=== PATIENT | female | born 1995 | race Two or more races ===

== ENCOUNTER 2018-04-02 10:31 | Day surgery (SDC) | payer OTHER ==
[2018-04-01 14:48] VITALS: BMI 27.1
[~2018-04-02 10:31] MED LIST: Cyclopentolate 1% Opth Drop 2 ML BOT FS SCH; Phenylephrine 2.5% Ophth Soln 5 ML BOT FS SCH
[2018-04-02] MEDS ORDERED: Cyclopentolate 1% Opth Drop 2 ML BOT ONE (10:55)
[2018-04-02] MEDS ORDERED: Phenylephrine 2.5% Ophth Soln 5 ML BOT ONE (10:55)
[2018-04-02] MEDS ORDERED: Lidocaine 2% 10 ML INJ ONE (11:30)
[2018-04-02] MEDS ORDERED: PROPOFOL 20 ML ONE (11:30)
[2018-04-02] MEDS ORDERED: Ondansetron HCl/PF 4 MG/2 ML Vial ONE ×2 (11:30→15:01)
[2018-04-02] MEDS ORDERED: Fentanyl 100 MCG/2 ML VIAL ONE (11:30)
[2018-04-02] MEDS ORDERED: Midazolam HCl 2 mg/2 ml Vial ONE (11:33)
[2018-04-02] MEDS ORDERED: ePHEDrine/0.9% NaCl/PF SYRINGE 50 mg/10 ml ONE (15:01)
[2018-04-02] MEDS ORDERED: Dexamethasone 20 MG/5 ML VIAL ONE (15:01)
[2018-04-02] MEDS ORDERED: Lidocaine 1% PF 5 ML VIAL ONE (15:01)
[2018-04-02] MEDS ORDERED: PROPOFOL 200 MG/20 ML VIAL ONE (15:01)
[2018-04-02] MEDS ORDERED: PHENYLEPHRINE-NS 100 MCG/ML 10 ML SYRINGE ONE (15:01)
--- NOTE | 2018-04-02 18:35 | OP ---
DATE OF PROCEDURE: 04/02/2018 PREOPERATIVE DIAGNOSES: Lattice degeneration, right eye; retinal detachment, left eye. PROCEDURE: Laser barricade right eye, scleral buckle, left eye. SURGEON: Miquel Combs M.D. ANESTHESIA: General endotracheal anesthesia. PROCEDURE IN DETAIL: The patient was identified in the preoperative holding area. [facility] consent for the planned surgical procedure on both eyes was obtained. The patient was transporte d to the operative suite where general endotracheal anesthesia was initiated. The right eye was ml oscar with 360 indirect laser barricade for a total of 563 spots. Left eye was prepped and draped in t he usual sterile manner for ophthalmic surgery on the left eye. Lid speculum was placed in the left eye. A 360 conjunctival peritomy was created by sharp dissection. Rectus muscles were looped on 2-0 silk ties, #41 band was encircled around the eye and ligated supranasally and [id number] element was plac ed on the temporal 180. This was fixated in place with 5-0 mersilene sutures. Posterior drain was c reated inferiorly and temporally with successful drain of subretinal fluid. Three spots of cryo were placed directly temporally over the retinal holes. Retrobulbar Kenalog and subconjunctival Ancef we re placed. Conjunctiva was closed with 6-0 plain gut suture. Antibiotic ointment placed and eye was patched and shielded. The patient was awakened and taken to recovery room in good condition and suf fered no immediate perioperative period. DISCHARGE INSTRUCTIONS: Patient was instructed to keep patch and shield on, avoid lifting or bending , and follow up in the morning with Dr. Combs.
== END 2018-04-02 15:10 | disposition home or self-care (01) ==
LOC: CANPRESDC → SDC 10:31
PROVIDERS: ATTEND Ophthalmology Retina Specialist
PROC: 08QE3ZZ Repair Right Retina, Percutaneous Approach (ICD-10-PCS; principal; 2018-04-02)
PROC: 08U10JZ Supplement of Left Eye with Synthetic Substitute, Open Approach (ICD-10-PCS; principal; 2018-04-02)
DX: H35.413 Lattice degeneration of retina, bilateral (principal); H33.22 Serous retinal detachment, left eye
CPT/HCPCS: J1100; J2001; J2250; J2405; J2704; J3010

== ENCOUNTER 2019-03-05 11:44 | Emergency (ER) | payer OTHER ==
[2019-03-05 12:23] LABS: Bilirubin Negative (Negative); Blood, Urine Small (Negative); Glucose, Urine (Dipstick) Negative (Negative); Leukocyte Moderate (Negative); Nitrite Negative (Negative); Protein, Urine (Dipstick) Negative (Neg-Trace); Specific Gravity, Urine 1.014 (1.002-1.036); Urobilinogen 0.2 mg/dL (0.2-1.0)
[2019-03-05 12:24] LABS: Clarity Slightly Cloudy (Clear)
[2019-03-05 12:25] LABS: Pregnancy Test - Urine (BHCG) Negative (Negative); Pregu Control Background? CLEAR/WHITE (CLR/WHITE); Pregu Control Bar Appear? YES (CONTROL BAR); Specific Gravity 1.014 (1.002-1.036)
[2019-03-05 12:27] LABS: Bacteria/HPF 1+ HPF (None Seen); Hyaline Casts/LPF 4-6 HYALINE CAST LPF (0-3 Hyaline); RBC/HPF 0-3 HPF (0-3)
[2019-03-05] MEDS ORDERED: Azithromycin 250 MG TAB ONE (13:31)
[2019-03-05] MEDS ORDERED: cefTRIAXone\\ROCEPHIN 250 MG VIAL ONE (13:31)
[2019-03-09 20:09] LABS: Chlamydia by PCR Not Detected (NotDetected); GC by PCR Not Detected (NotDetected)
== END 2019-03-05 13:30 | disposition home or self-care (01) ==
LOC: ERS 11:44
DX: N76.0 Acute vaginitis (principal)
CPT/HCPCS: 81003; 81015; 81025; 87086; 87480; 87491; 87510; 87591; 87660; 96372; J0696

== ENCOUNTER 2019-05-09 09:44 | Emergency (ER) | payer SELFPAY ==
[2019-05-09 10:30] LABS: #Basophils 0.1 thou/uL (0.0-0.2); #Lymphocytes 1.5 thou/uL (1.20-3.40); #Monocytes 0.3 thou/uL (0.11-0.59); #Neutrophils 1.8 thou/uL (1.40-6.50); %Basophils 1.7 % (0.0-1.0); %Lymphocytes 40.6 % (21.0-51.0); %Monocytes 7.4 % (0.0-10.0); %Neutrophils 49.2 % (42.0-75.0); Hemoglobin 12.3 g/dL (12.0-16.0); Mean Corpuscular Hemoglobin 26.5 pg (27.0-31.0); Mean Corpuscular Volume 82.8 fL (78.0-98.0); Mean Platelet Volume 9.4 fL (7.4-10.4); Platelet Count 193 thou/uL (130-400); RBC Distribution Width 13.8 % (11.5-14.5); Red Blood Cell (RBC) Count 4.64 mill/uL (4.20-5.40); White Blood Cell (WBC) Count 3.6 thou/uL (4.8-10.8)
[2019-05-09 10:52] LABS: Acetaminophen Less than 6.0 mcg/mL (10.0-30.0); Alcohol Less than 10 mg/dL (Less than 10); Anion Gap 11 mmol/L (10-20); BUN (Urea Nitrogen) 10 mg/dL (7.0-18.7); Calc. Creatinine Clearance 0 mL/min (70-130); Calcium 9.2 mg/dL (7.8-10.44); Carbon Dioxide 23 mmol/L (22-29); Chloride 106 mmol/L (98-107); Estimated GFR-MDRD Greater than 90; Glucose 77 mg/dL (70-105); Potassium 4.2 mmol/L (3.5-5.1); Salicylate Less than 8.0 mg/dL (15.0-30.0); Sodium 136 mmol/L (136-145)
[2019-05-09 11:07] LABS: Amphetamine Not Detected (NotDetected); Cocaine Metabolite Screen Not Detected (NotDetected); Medtox Reader # READER 4; Methamphetamine Not Detected (NotDetected); Opiate Screen Not Detected (NotDetected); Phencyclidine (PCP) Not Detected (NotDetected); THC/Cannabinoid Screen Not Detected (NotDetected)
[2019-05-09 11:08] LABS: Barbiturates Screen Not Detected (NotDetected); Benzodiazepine Screen Detected (NotDetected); Medtox Control Line Valid? VALID (VALID); Methadone Not Detected (NotDetected); Oxycodone Screen Not Detected (NotDetected); Pregnancy Test - Urine (BHCG) Negative (Negative); Pregu Control Background? CLEAR/WHITE (CLR/WHITE); Pregu Control Bar Appear? YES (CONTROL BAR); Tricyclic Screen Not Detected (NotDetected)
[2019-05-09] MEDS ORDERED: Acetaminophen 500 MG TAB ONE (11:31)
== END 2019-05-09 13:10 | disposition home or self-care (01) ==
LOC: ERS 09:44
DX: S50.812A Abrasion of left forearm, initial encounter (principal); S50.811A Abrasion of right forearm, initial encounter; F43.0 Acute stress reaction; F32.9 Major depressive disorder, single episode, unspecified; X78.8XXA Intentional self-harm by other sharp object, initial encounter
CPT/HCPCS: 36415; 80048; 80306; 80307; 81025; 85025; 99285